=== PATIENT | female | born 1990 | race African-American/Black ===

== ENCOUNTER 2020-02-09 19:32 | Emergency (ER) | payer OTHER, SELFPAY ==
--- NOTE | ~2020-02-09 | XR_ITS ---
EXAMINATION: XR chest 2V DATE: 02/09/2020 20:26 INDICATION: Midsternal chest pain TECHNIQUE: PA and lateral views of the chest are obtained. COMPARISON: None available FINDINGS: There are minimal airspace opacities of the right lung base and left midlung zone. There is no pleural effusion or pneumothorax. The cardiomediastinal silhouette is normal. The visualized bone s and soft tissues are unremarkable. IMPRESSION: 1. Minimal airspace opacities of the right lung base and left midlung zone, consistent with atelectas is versus pneumonia. Reviewed, dictated and finalized at location A. IMPRESSION: 1. Minimal airspace opacities of the right lung base and left midlung zone, con sistent with atelectasis versus pneumonia.
--- NOTE | 2020-02-09 19:34 | ECG_ITS ---
Measurements Intervals [place] Rate: 113 P: 44 TN: 148 QRS: 18 QRSD: 85 T: 20 QT: 322 QTc: 443 Interpretive Statements SINUS TACHYCARDIA VOLTAGE CRITERIA FOR LVH MINIMAL Q WAVES- ANTEROLATERAL LEADS CONSIDER INFERIOR INFARCT, AGE INDETERMINATE ABNORMAL ECG Electronically Signed On 02-09-2020 20:14:34 CDT by Ander Marx D.O.
[2020-02-09 19:42] VITALS: BP 150/102; PULSE 105; RESP 18; TEMP 36.6; O2SAT 99
[2020-02-09 19:57] LABS: Basophils Percent Auto 0.5 % (0.2-1.2); Eosinophils Absolute Auto 0.2 K/mm3 (0-0.3); Eosinophils Percent Auto 2.4 % (0-4.4); Hematocrit 37.3 % (37.0-47.0); Hemoglobin 11.9 g/dL (12.0-15.0); Immature Granulocyte Absolute 0.03 K/mm3 (0.00-0.031); Immature Granulocyte Percent A 0.3 % (0-0.5); Lymphocytes Absolute Auto 2.28 K/mm3 (0.9-3.2); Lymphocytes Percent Auto 26.5 % (18.3-44.2); Mean Corpuscular HGB Conc 31.9 g/dl (32-36); Mean Corpuscular Hemoglobin 26.8 pg (26-34); Mean Platelet Volume 10.8 fl (7.4-10.4); Monocytes Absolute Auto 0.4 K/mm3 (0.1-0.6); Monocytes Percent Auto 4.3 % (2.6-8.5); Neutrophils Absolute Auto 5.7 K/mm3 (1.3-6.7); Platelet Count Result 353 k/mm3 (150-375); Red Blood Count 4.44 M/mm3 (4.2-5.4); White Blood Count 8.6 K/mm3 (4.5-10.0)
[2020-02-09 20:09] LABS: INR 0.9; Prothrombin Time 11.9 Seconds (11.1-14.7)
[2020-02-09 20:11] LABS: Anion Gap 4 mmol/L (8-16); Blood Urea Nitrogen 13 mg/dL (7-17); Calcium 8.9 mg/dL (8.4-10.2); Carbon Dioxide 29 mmol/L (22-30); Chloride 102 mmol/L (98-107); Estimated CRCL calculation 110 ml/min; Estimated Glomerular Filt Rate > 60; Glucose 116 mg/dL (65-105); Potassium 3.9 mmol/L (3.4-5.0); Sodium 135 mmol/L (137-145)
[2020-02-09 20:23] LABS: Troponin I < 0.012 ng/mL (0.000-0.034)
--- NOTE | 2020-02-09 20:33 | ED.CHESTPAIN ---
HPI - Chest Pain General Chief Complaint: Chest Pain Stated Complaint: im having severe chest pain Time Seen by Provider: 02/09/20 20:25 Source: RN notes reviewed History of Present Illness HPI narrative: Patient presents emergency department from home for chest pain. Patient states she is had intermittent chest pain for the past 2 days. Pain is located over the midsternal chest and radiates down to the epigastric region is described as burning. Associated with mild shortness of breath. She denies any fevers or chills vomiting diarrhea or any other symptoms. States she took no medication for the symptoms today Related Data Allergies Allergy/AdvReac Type Severity Reaction Status Date / Time No Known Allergies Allergy Verified 02/09/20 19:33 Review of Systems Review of Systems: Narrative: Gen.: Denies fevers or chills ENT: Denies congestion Respiratory: Reports shortness of breath CV: See HPI GI: Reports epigastric abdominal pain, denies any nausea vomiting or diarrhea denies burning, urgency, frequency or hematuria Musculoskeletal: Denies back pain or muscle pain Neuro: Denies numbness, tingling, weakness or focal weakness Skin: Denies rash Except as documented, all other systems reviewed and negative [facility] Past Medical History Medical History (Updated 02/09/20 @ 22:16 by Otto Dill DO) Patient denies significant medical history Social History Social History (Updated 02/09/20 @ 20:34 by Otto Dill DO) Smoking status: Never smoker Exam Narrative: Exam Narrative: APPEARANCE: No acute distress, nontoxic, resting in bed EYES: EOMI HEENT: Normocephalic, atraumatic, OMM RESPIRATORY: No respiratory distress Clear to auscultation bilaterally with no rhonchi wheezing or rales. CARDIOVASCULAR: Regular rate and rhythm without murmurs rubs or gallops. Chest: Tender palpation over the lower midsternal chest wall ABDOMINAL: Soft, nondistended, tender palpation epigastric region, no tenderness right upper quadrant, left upper quadrant right lower quadrant left lower quadrant, no rebound or guarding MUSCULOSKELETAl: Moves all extremities. No clubbing, cyanosis or edema. NEURO: Awake and alert. Following commands, speech normal, no focal deficits SKIN:: Warm, dry. No rashes lesions or abrasions PSYCHIATRIC: Normal affect/mood, Course Course Emergency Course: Patient states chest pain has resolved following GI cocktail Reviewed chest x-ray patient has no fever or cough suspect atelectasis Discussed with patient results of workup and diagnosis. Discussed need for follow-up with primary care, proper use of medication, and reasons to return to the emergency department. Patient understands and agrees to current treatment plan Vital Signs Vital signs: Vital Signs Temperature 97.9 F 02/09/20 19:42 Pulse Rate 105 H 02/09/20 19:42 Respiratory Rate 18 02/09/20 19:42 Blood Pressure 150/102 H 02/09/20 19:42 Pulse Oximetry 99 02/09/20 19:42 Temperature 97.9 F 02/09/20 19:42 Pulse Rate 88 02/09/20 21:32 Respiratory Rate 16 02/09/20 21:32 Blood Pressure 136/90 02/09/20 21:32 Pulse Oximetry 98 02/09/20 21:32 MDM - Chest Pain MDM Narrative Medical decision making narrative: Patient's EKGs and labs are without significant high risk changes. Cardiac risk factors reviewed. Patient is felt likely low risk for ACS and reasonable for further risk stratification testing as an outpatient. Pain was not sudden or maximal in onset without tearing or ripping quality. No other signs of symptoms suggest aortic dissection. A low-risk Wells criteria is noted, PE is felt to be unlikely. No pneumonia seen on evaluation today. Patient is felt to be a reasonable candidate for continued evaluation as an outpatient Lab Data Result diagrams: 02/09/20 19:51 02/09/20 19:51 Labs: Lab Results 02/09/20 02/09/20 02/09/20 Range/Units 19:50 19:50 19:51 WBC 8.6 (4.5-10.0) K
[2020-02-09 20:41] LABS: Alanine Aminotransferase 13 U/L (4-35); Albumin Level 3.8 g/dL (3.5-5.1); Alkaline Phosphatase 47 U/L (38-126); Aspartate Amino Transferase 17 U/L (14-36); Bilirubin,Total 0.5 mg/dL (0.2-1.3); D Dimer 0.27 ug/mL (<0.48); Lipase 84 U/L (23-300)
[2020-02-09 21:30] VITALS: PULSE 78
[2020-02-09 21:32] VITALS: BP 136/90; PULSE 88; RESP 16; O2SAT 98
[2020-02-09 22:42] VITALS: BP 130/88; PULSE 90; RESP 16; O2SAT 98
== END 2020-02-09 22:50 | disposition home or self-care (01) ==
PROVIDERS: Emergency Provider Emergency Medicine
DX: R07.89 Other chest pain (principal); K21.9 Gastro-esophageal reflux disease without esophagitis; R00.0 Tachycardia, unspecified; R94.31 Abnormal electrocardiogram [ECG] [EKG]; R91.8 Other nonspecific abnormal finding of lung field
CPT/HCPCS: 36415; 71046; 80048; 80076; 83690; 84484; 85025; 85380; 85610; 85730; 93005; 99284; A9270

== ENCOUNTER 2020-03-04 07:23 | Outpatient (CLI) | payer OTHER, SELFPAY ==
--- NOTE | 2020-04-02 23:41 | WPDHOMESLEEP ---
Sleep Study - Home Unattended Date of Study: 03/05/20 Ordering Provider: Maren De La Rosa MD Interpreting Physician: Vika Polanco MD Home Sleep Study Type: Apnea Link Air Height: 1.55 m Weight: 102.058 kg Body Mass Index: 42.5 [place]: 11 Reason for Sleep Study Hypersomnia Sleep History Archie Johnson is a 29 year old female with loud snoring which is constantly loud enough that others complain about it. She frequently awakens at night with heartburn, belching or coughing. She occasionally awakens at night feeling short of breath. She constantly has trouble sleeping with a cold, and frequently gasps for breath at night. She occasionally has breathing problems at night reported to her by others, and occasionally sweats excessively at night. She rarely notices her heart pounding or beating irregularly at night. She never falls asleep in the day, rarely falls asleep involuntarily and rarely falls asleep while driving. She rarely falls asleep during physical effort. She does not have loss of muscle tone with strong emotion. 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 She rarely feels paralyzed on waking or falling asleep. She does not have vivid dreamlike scenes upon awakening or falling asleep. She rarely is afraid to go to sleep. She does not have nightmares and does not remember her dreams. She occasionally has racing thoughts, rarely feels sad or depressed. She frequently feels anxious. She occasionally has muscular tension. She does not notice parts of her body jerking at night. She rarely kicks at night and rarely has crawling or aching feelings in her legs at night. She occasionally has leg pain during the night. She occasionally has morning jaw pain. She does not grind her teeth during sleep and she is not bothered by pain during the day. She occasionally has awakened by pain at night, occasional wakes up feeling stiff in the morning, with sore or achy muscles and pain in the neck and spine. She has fatigue, memory problems, insomnia, takes and acids regularly, has frequent morning headaches. Normal bedtime is 11:00 p.m. taking quite a while to fall asleep, typically waking 3 times at night for 15 minutes. During this time she will get a drink of water and sometimes go to the bathroom. She wakes in the morning at 7:00 a.m.. She estimates 7 hours of sleep at night. We can schedule is the same. She denies taking naps. A short nap is not refreshing. She is drowsy in the morning for 2 hours or longer. Habits: Never smoker. She drinks caffeine. No alcohol or recreational drugs. [facility] Past Medical History Medical History (Updated 04/07/20 @ 09:53 by Vika Polanco MD) Patient denies significant medical history Recurrent streptococcal tonsillitis Family History Family History (Updated 04/07/20 @ 09:53 by Vika Polanco MD) Father Acute myocardial infarction Heart disease Hypercholesterolemia Kidney disease Mother Hypertension Hypercholesterolemia Cerebrovascular accident Osteoporosis Social History Social History (Updated 04/07/20 @ 09:55 by Vika Polanco MD) Smoking status: Never smoker Alcohol intake: never Substance use: never Living arrangements: with family Occupation/Education: occupation 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 This study was scored using CMS guidelines. Sleep Architecture Not applicable for home sleep test. Respiratory Analysis The recording time was 11 hours 17 minutes. The AHi is 5. She had 14 apneas, all obstructive. Oximetry Data The oxygen [facility]
[2020-04-07 10:03] VITALS: BMI 42.5
== END 2020-03-04 07:24 | disposition home or self-care (01) ==
LOC: ANHCSM 07:25
PROVIDERS: Visit Provider Family Medicine
DX: G47.33 Obstructive sleep apnea (adult) (pediatric) (principal)
CPT/HCPCS: 95806

== ENCOUNTER 2020-05-10 07:29 | Emergency (ER) | payer OTHER, SELFPAY ==
--- NOTE | 2020-05-10 07:33 | ED.URI ---
HPI - URI/Sore Throat General Chief Complaint: Unspecified Stated Complaint: sore throat Time Seen by Provider: 05/10/20 07:32 Source: patient Mode of arrival: ambulatory Limitations: no limitations History of Present Illness HPI Narrative: Patient is a 29-year-old female with a history of recurrent pharyngitis, sleep apnea who presents for evaluation of sore throat. Patient has had a sore throat over the past 2 days as well as sinus drainage. Denying fever, chills, cough or shortness of breath. Patient is mildly Dr. Wilson, scheduled for upcoming colonoscopy. She is denying loss of sense of taste or smell. No myalgias. No recent sick contacts. Pt last strep infection ~ 3 months ago per patient. Related Data Allergies Allergy/AdvReac Type Severity Reaction Status Date / Time No Known Allergies Allergy Verified 05/10/20 07:36 Review of Systems Review of Systems: Narrative: CONSTITUTIONAL: Denies fever HEENT: Reports sore throat CARDIOVASCULAR: Denies chest pain RESPIRATORY: Denies cough or dyspnea. 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 EYES: PERRLA and EOMI. ENT: Nares clear, no rhinorrhea or epistaxis. Mucous membranes moist. Uvula is midline. Bilateral tonsillar edema, erythema without petechiae or exudate. No trismus. NECK: Supple. No cervical lymphadenopathy. No edema of the neck. CHEST: No respiratory distress, breathing even and non labored HEART: Regular rate, sinus rhythm ABDOMEN:Non distended, non tender EXTREMITIES: Normal range of motion. No edema. SKIN: Warm, dry, no rash. NEURO:No focal deficits. Alert and oriented x3 Course Vital Signs Vital signs: Vital Signs Temperature 36.3 C L 05/10/20 07:34 Pulse Rate 91 05/10/20 07:34 Respiratory Rate 20 05/10/20 07:34 Blood Pressure 150/100 H 05/10/20 07:34 Pulse Oximetry 100 05/10/20 07:34 Temperature 36.3 C L 05/10/20 07:34 Pulse Rate 91 05/10/20 07:34 Respiratory Rate 20 05/10/20 07:34 Blood Pressure 150/100 H 05/10/20 07:34 Pulse Oximetry 100 05/10/20 07:34 MDM - URI/Sore Throat MDM Narrative Medical decision making narrative: Patient presented for evaluation of sore throat. At the time of assessment, ABCs are intact and vital signs are stable. Patient is afebrile. No Covid type features. Patient does have tonsillar edema, erythema without petechiae or exudate. 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 Airway is patent. Patient was given Decadron, Tylenol, strep swab is positive, she will be prescribed antibiotic treatment for strep pharyngitis. Patient was then discharged home, she is already established with an ENT. Differential Diagnosis Differential diagnosis: Likely upper respiratory infection, otitis media, viral infection and pharyngitis Medical Records Attestation: I reviewed the patient's medical records. Lab Data Labs: Strep Screen Positive Group A Strep *(Reference Range: Negative)* Discharge Plan Discharge Clinical Impression: Strep pharyngitis Patient Disposition: Home, Self-Care Condition: Stable
[2020-05-10 07:34] VITALS: BP 150/100; PULSE 91; RESP 20; TEMP 36.3; O2SAT 100
[2020-05-10] MEDS: ACETAMINOPHEN 500 MG TABLET 1000 MG PO (07:55)
[2020-05-10 07:58] VITALS: BP 148/98; PULSE 80; RESP 20; O2SAT 100
== END 2020-05-10 07:59 | disposition home or self-care (01) ==
PROVIDERS: Emergency Provider Emergency Medicine; PCP Family Medicine
DX: J02.0 Streptococcal pharyngitis (principal)
CPT/HCPCS: 87880; 99283; A9270; J1100

== ENCOUNTER 2020-05-26 03:12 | Outpatient (CLI) | payer OTHER, SELFPAY ==
[2020-05-26 19:22] LABS: SARS-CoV-2 RNA PCR Negative
== END 2020-05-26 03:13 | disposition home or self-care (01) ==
LOC: ANHCOVIDDT 03:12
PROVIDERS: PCP Family Medicine; Visit Provider Otolaryngology
DX: Z01.812 Encounter for preprocedural laboratory examination (principal); Z20.822 Contact with and (suspected) exposure to COVID-19
CPT/HCPCS: C9803; U0003; U0005

== ENCOUNTER 2020-05-29 02:06 | Day surgery (SDC) | payer OTHER, SELFPAY ==
[2020-05-21 15:49] VITALS: BMI 43.5
--- NOTE | 2020-05-27 15:20 | PM.IMHP ---
H&P: HPI History of Present Illness Date/Time: 05/27/20 15:20 Chief Complaint: Adenoid hypertrophy, tonsillar hypertrophy, chronic tonsillitis, inferior turbinate hypertrophy Narrative: Archie Johnson is a 29 year old female Who presents for planned surgical procedure. She reports no new symptoms or changes in her medical history. Review of Systems Constitutional: Constitutional: Denies fatigue, Denies fever(s) and Denies lethargy Eyes: Eyes: Denies blurry vision and Denies change in vision ENT: Reports as per HPI Cardiovascular: Cardiovascular: Denies chest pain Respiratory: Respiratory: Denies cough Endocrine: Endocrine: Denies fatigue Hematologic/Lymphatic: Hematologic/Lymphatic: Denies easy bleeding, Denies easy bruising and Denies lymphadenopathy Allergic/Immunologic: Allergic/Immunologic: Denies seasonal rhinorrhea [facility] Past Medical History Medical History Patient denies significant medical history Recurrent streptococcal tonsillitis Family History Family History Father Acute myocardial infarction Heart disease Hypercholesterolemia Kidney disease Mother Hypertension Hypercholesterolemia Cerebrovascular accident Osteoporosis Social History Social History Smoking status: Never smoker Alcohol intake: current Drinks per week: 1 Substance use: never 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 Spiritual care concerns: No Meds Home Medications and Allergies Home Medications Medication Instructions Recorded Confirmed Type famotidine [Pepcid] 20 mg PO DAILY #14 tablet 02/09/20 05/21/20 Rx fluticasone propionate 50 1 spray INTRANASAL BID #15.8 ml 05/07/20 05/21/20 Rx mcg/actuation nasal spray,suspension Allergies Allergy/AdvReac Type Severity Reaction Status Date / Time No Known Allergies Allergy Verified 05/21/20 15:31 Exam Const: General: cooperative, healthy appearing, comfortable, well developed and alert HENMT: Head: normal to inspection, normocephalic and atraumatic Ears: external ears normal, TM's normal bilaterally and EAC's normal General nose exam: Normal external nose present, Normal nares present and Other nasal findings present ( See clinic note from previous exam) Face and sinus: normal facial exam Mouth: Yes Normal oral and palatal mucosa present, Yes lip normal, Yes tongue normal, Yes oropharynx normal and Yes moist mucous membranes Teeth and gingiva: dentition normal and gingiva normal Throat: posterior oropharynx normal, tonisls abnormal ( see Clinic note previous exam) and uvula midline Eyes: General: appearance normal, both eyes and all related structures Periorbital: periorbital findings normal Eyelids: eyelids normal Conjunctivae: conjunctivae normal Sclera: sclerae normal Neck: Neck: normal visual inspection, full ROM and no lymphadenopathy Thyroid: thyroid normal Lymphatic: no lymphadenopathy noted Resp: Effort & Inspection: normal respiratory effort and able to speak in complete sentences Cardio: Jugular venous distension: no JVD Neuro: Cranial nerves: Yes CN's II-XII intact bilaterally Assessment and Plan Assessment and plan (1) Tonsillar hypertrophy: Code(s): J35.1 - Hypertrophy of tonsils Status: Acute Assessment and Plan: The plan is for the OR for tonsillectomy adenoidectomy, endoscopically assisted if necessary, as well as bilateral inferior turbinate reduction and outfracture. The risks were discussed in great detail including bleeding infection damage to vision turbinate regrowth failure to resolve symptoms need for further procedures nasal regurgitation significant pain change in voice the patient voiced understanding of these risks and agreed. (2) Adenoid hypertrophy: Code(s): J35.2 - Hypertro
[2020-05-29] VITALS (9 sets, daily range): BP systolic 137–156; BP diastolic 87–111; PULSE 86–101; RESP 10–21; TEMP 36.2–36.7; O2SAT 91–100
--- NOTE | 2020-05-29 07:02 | WPDHPUPDATE1 ---
History and Physical Update Update Date/Time: 05/29/20 07:02 History and Physical has been reviewed, including an updated exam of the patient. There are NO changes in the patient's condition. Risks, benefits, and alternatives have been discussed and questions answered. Patient agrees to proceed with procedure.
[2020-05-29] MEDS: ACETAMINOPHEN 500 MG TABLET 1000 MG PO (08:23)
[2020-05-29] MEDS: LACTATED RINGERS 1,000 ML 30 ML IV CONT ×2 (08:40→12:41)
--- NOTE | 2020-05-29 09:31 | WPDANESEPPF ---
Anes - Initial Pre Proc Eval Procedure: Operation Date: 05/29/20 09:45 Proposed Procedures p Tonsillectomy And Adenoidectomy - Wayne Wilson MD s Bilateral Inferior Turbinectomy - Wayne Wilson MD Date/Time: 05/29/20 09:31 Surgeon: Wayne Wilson MD Pre Op Diagnosis: Chronic Tonsilitis, Turbinate Hypertrophy Patient Data Age: 29 Gender: F Height: 5 ft 1 in Weight: 104 kg Last Vital Signs Temp 36.7 C 05/29/20 08:00 Pulse 101 H 05/29/20 08:00 Resp 14 05/29/20 08:00 BP 149/90 H 05/29/20 08:00 Pulse Ox 100 05/29/20 08:00 Allergies Allergy/AdvReac Type Severity Reaction Status Date / Time No Known Allergies Allergy Verified 05/29/20 08:14 Home Medications Medication Instructions Recorded Confirmed Type fluticasone propionate 50 1 spray INTRANASAL BID #15.8 ml 05/07/20 05/29/20 Rx mcg/actuation nasal spray,suspension lisinopril 20 mg PO DAILY 05/29/20 05/29/20 History Patient hx anesthesia problems: none Family hx anesthesia problems: none PMFSH Past Medical History Medical History (Updated 05/29/20 @ 09:35 by Og Burns MD) HTN (hypertension) Morbid obesity Recurrent streptococcal tonsillitis Surgical History Surgical History (Updated 05/29/20 @ 09:35 by Og Burns MD) H/O hernia repair Family History Family History Father Acute myocardial infarction Heart disease Hypercholesterolemia Kidney disease Mother Hypertension Hypercholesterolemia Cerebrovascular accident Osteoporosis Social History Social History Smoking status: Never smoker Alcohol intake: current Drinks per week: 1 Substance use: never Living arrangements: with family 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 Questions were solicited and answers provided to the satisfaction of the patient/family/POA.
[2020-05-29] MEDS: ceFAZolin 2 GM/D5W 50 ML 2 GM/50 ML BAG IVPB (10:50)
[2020-05-29] MEDS: LIDO 1%/EPINEPHRINE 1:100,000 50 ML VIAL 10 ML INFILTRATE (11:06)
[2020-05-29] MEDS: OXYMETAZOLINE HCL 0.05% NAS 15 ML BTL (*BKC) 1 SPRAY NASAL (11:07)
--- NOTE | 2020-05-29 12:28 | SUR.OPER ---
EBL 30
[2020-05-29] MEDS: fentaNYL CITRATE INJ (*CRX) 100 MCG/2 ML VIAL 25 MCG IV PUSH ×6 (12:48→13:17)
--- NOTE | 2020-05-29 12:48 | PM.PROC ---
Procedure Note - Detailed Date of procedure: 05/29/20 Pre-op diagnosis: Chronic Tonsilitis, Turbinate Hypertrophy Adenoid hypertrophy Post-op diagnosis: same Procedure performed: 1. Endoscopic adenoidectomy 2. Tonsillectomy 3. Inferior turbinate reduction without fracture Description of procedure: The patient was correctly identified and consent was verified in the preoperative holding area. The patient was then brought to the operating room and a time-out was performed. General anesthesia was induced and endotracheal tube was secured the patient's airway. The McIvor mouth gag was then introduced demonstrating tonsils which were 3 to 4+ cryptic edematous and erythematous. They are removed by Bovie electrocautery in the extracapsular plane in a setting of 10 and 12. Hemostasis was achieved using intermittent use of suction Bovie electrocautery at a setting of 12 and 15. Hemostasis was noted to be excellent. The adenoids were noted to be too large it 2-3 +2 removed trans orally and the decision was made to remove them endoscopically. The patient was then prepped and draped draped for the next portion of the procedure and the Liborio mouth gag was removed. A 0 degree endoscope utilized to be the nasal passage with a 3 to 4+ adenoids noted and hypertrophied inferior turbinates. The turbinates were injected anteriorly with 0.5 cc of 1% lidocaine with 1 100,000 parts epinephrine. They were then debrided the submucosal plane with the microdebrider with inferior turbinate blade. They were outfractured with a [place] elevator. The microdebrider was then switched to a quad cut and the adenoids were debrided. Hemostasis was achieved using suction Bovie electrocautery at a setting of 15 as well as the packing of the bleeding areas with Afrin-soaked pledgets. Following removal of the pledgets bleeding was noted to be tolerable. This marked the end of the procedure. Care of the patient was turned over to Anesthesiology. I performed all dictated portions blood loss 20 cc no complications. Anesthesia: GLMA Surgeon: Wayne Wilson MD Estimated blood loss (mL): 20 Complications: No immediate complications Condition: stable Disposition: PACU
[2020-05-29] MEDS: oxyCODONE HCL (*CRX) 5 MG TAB IR PO (14:02)
== END 2020-05-29 15:22 | disposition home or self-care (01) ==
PROVIDERS: PCP Family Medicine; Visit Provider Otolaryngology
PROC: (CPT 42821; principal; 2020-05-29 09:45)
PROC: (CPT 42821; 2020-05-29 09:45)
DX: J35.03 Chronic tonsillitis and adenoiditis (principal); J35.1 Hypertrophy of tonsils; J35.2 Hypertrophy of adenoids; G47.33 Obstructive sleep apnea (adult) (pediatric); J34.3 Hypertrophy of nasal turbinates
CPT/HCPCS: 42821; 30140; 88302; 88304; A9270; J0330; J0690; J1100; J2250; J2405; J2704; J3010; J7120

== ENCOUNTER 2020-07-24 23:42 | Emergency (ER) | payer OTHER, SELFPAY ==
[2020-07-24 23:54] VITALS: BP 141/108; PULSE 85; RESP 20; TEMP 36.9; O2SAT 99
--- NOTE | 2020-07-25 00:14 | ED.GENADULT ---
HPI - General Adult General Chief complaint: Unspecified Stated complaint: strep test Source: patient Mode of arrival: ambulatory Limitations: no limitations History of Present Illness HPI narrative: 29-year-old female Complains of being kind of phlegmy and congested Similar to when she is previously had strep throat and especially bothersome when she is getting ready to try to go to sleep at night for last 2 or 3 days She has not had a fever and she did have a tonsillectomy Related Data Home Medications Medication Instructions Recorded Confirmed lisinopril 20 mg PO DAILY 05/29/20 05/29/20 Allergies Allergy/AdvReac Type Severity Reaction Status Date / Time No Known Allergies Allergy Verified 06/04/20 09:22 Review of Systems Constitutional: Constitutional: Denies chills and Denies fever(s) Eyes: Eyes: Reports no additional eye complaints and Denies change in vision ENT: Reports nasal congestion, Reports post nasal drip and Reports sore throat Respiratory: Respiratory: Reports cough Neurologic: Denies headache(s) [facility] Past Medical History Medical History (Updated 07/25/20 @ 00:20 by Ranjeet Phillips MD) HTN (hypertension) Morbid obesity Recurrent streptococcal tonsillitis Surgical History Surgical History (Updated 05/29/20 @ 09:35 by Og Burns MD) H/O hernia repair Family History Family History Father Acute myocardial infarction Heart disease Hypercholesterolemia Kidney disease Mother Hypertension Hypercholesterolemia Cerebrovascular accident Osteoporosis Social History Social History Smoking status: Never smoker Alcohol intake: current Drinks per week: 1 Substance use: never 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 Spiritual care concerns: No Exam Const: General: no acute distress Orientation/consciousness: patient oriented x3 (alert) HENMT: Head: normocephalic and atraumatic Ears: external ears normal General nose exam: No nasal discharge present and no epistaxis Face and sinus: face symmetric Mouth: Yes Normal oral and palatal mucosa present and Yes moist mucous membranes Teeth and gingiva: dentition normal Throat: uvula not displaced and no uvular edema Other: No exudates Eyes: Conjunctivae: conjunctivae normal Sclera: sclerae normal EOM: EOMs intact bilaterally Neck: Neck: normal visual inspection Lymphatic: no lymphadenopathy noted Resp: Effort & Inspection: normal respiratory effort Neuro: General: patient oriented x3 (alert) Cranial nerves: Yes facial symmetry Speech: normal speech Psych: Affect: normal affect Course Course Emergency Course: Discussed with patient that this should be managed with [id number] decongestants and antihistamines Vital Signs Vital signs: Vital Signs Temperature 36.9 C 07/24/20 23:54 Pulse Rate 85 07/24/20 23:54 Respiratory Rate 20 07/24/20 23:54 Blood Pressure 141/108 H 07/24/20 23:54 Pulse Oximetry 99 07/24/20 23:54 Temperature 36.9 C 07/24/20 23:54 Pulse Rate 85 07/24/20 23:54 Respiratory Rate 20 07/24/20 23:54 Blood Pressure 141/108 H 07/24/20 23:54 Pulse Oximetry 99 07/24/20 23:54 Medical Decision Making Vital Signs Vital Signs: Vital Signs Temperature 36.9 C 07/24/20 23:54 Pulse Rate 85 07/24/20 23:54 Respiratory Rate 20 07/24/20 23:54 Blood Pressure 141/108 H 07/24/20 23:54 Pulse Oximetry 99 07/24/20 23:54 Temperature 36.9 C 07/24/20 23:54 Pulse Rate 85 07/24/20 23:54 Respiratory Rate 20 07/24/20 23:54 Blood Pressure 141/108 H 07/24/20 23:54 Pulse Oximetry 99 07/24/20 23:54 Lab Data Labs: Strep Screen Presumptive Negative *(Reference Range: Negative)* Discharge Plan Discharge Clinical Impression: Nasal
[2020-07-25 00:25] VITALS: BP 122/99; PULSE 85; RESP 20; O2SAT 98
== END 2020-07-25 00:25 | disposition home or self-care (01) ==
PROVIDERS: Emergency Provider Emergency Medicine; PCP Family Medicine
DX: R09.81 Nasal congestion (principal); R09.82 Postnasal drip
CPT/HCPCS: 87880; 99283

== ENCOUNTER 2020-12-20 00:48 | Emergency (ER) | payer OTHER, SELFPAY ==
--- NOTE | ~2020-12-20 | XR_ITS ---
EXAMINATION: XR chest 2V 12/20/2020 01:27 INDICATION: Midsternal chest pain PROCEDURE: 2 view chest COMPARISON: 02/09/2020 FINDINGS: The lungs are clear. The cardiomediastinal silhouette is within normal limits. There are no pleural effusions. There is no pneumothorax suspected. IMPRESSION: 1: NO ACUTE CARDIOPULMONARY DISEASE. Reviewed, dictated and finalized at location A.
[2020-12-20 00:49] VITALS: BP 130/78; PULSE 90; RESP 18; TEMP 36.4; O2SAT 100
--- NOTE | 2020-12-20 00:53 | ECG_ITS ---
Measurements Intervals [place] Rate: 93 P: 33 ME: 178 QRS: 12 QRSD: 90 T: 12 QT: 370 QTc: 461 Interpretive Statements SINUS RHYTHM POSSIBLE LEFT VENTRICULAR HYPERTROPHY MINIMAL Q WAVES- ANTEROLATERAL LEADS INFERIOR INFARCT, AGE INDETERMINATE ABNORMAL ECG Electronically Signed On 12-20-2020 7:07:07 CDT by Ander Marx D.O.
[2020-12-20 01:11] LABS: Basophils Percent Auto 0.3 % (0.2-1.2); Eosinophils Absolute Auto 0.2 K/mm3 (0-0.3); Eosinophils Percent Auto 2.2 % (0-4.4); Hematocrit 35.6 % (37.0-47.0); Hemoglobin 11.3 g/dL (12.0-15.0); Immature Granulocyte Absolute 0.03 K/mm3 (0.00-0.031); Immature Granulocyte Percent A 0.3 % (0-0.5); Lymphocytes Absolute Auto 3.71 K/mm3 (0.9-3.2); Lymphocytes Percent Auto 39.4 % (18.3-44.2); Mean Corpuscular HGB Conc 31.7 g/dl (32-36); Mean Corpuscular Hemoglobin 26.3 pg (26-34); Monocytes Absolute Auto 0.6 K/mm3 (0.1-0.6); Monocytes Percent Auto 6.2 % (2.6-8.5); Neutrophils Absolute Auto 4.9 K/mm3 (1.3-6.7); Neutrophils Percent Auto 51.6 % (45.5-73.1); Platelet Count Result 379 k/mm3 (150-375); Red Blood Count 4.29 M/mm3 (4.2-5.4); Red Cell Distribution Width 12.6 % (11.5-14.5); White Blood Count 9.4 K/mm3 (4.5-10.0)
[2020-12-20 01:21] LABS: INR 0.9; Partial Thromboplastin Time 25.6 SECONDS (22.3-36.8); Prothrombin Time 11.8 Seconds (11.1-14.7)
[2020-12-20 01:29] LABS: Anion Gap 10 mmol/L (8-16); Blood Urea Nitrogen 10 mg/dL (7-17); Calcium 8.7 mg/dL (8.4-10.2); Carbon Dioxide 25 mmol/L (22-30); Chloride 100 mmol/L (98-107); Estimated CRCL calculation 108 ml/min; Estimated Glomerular Filt Rate > 60; Glucose 142 mg/dL (65-110); Potassium 3.5 mmol/L (3.4-5.0); Sodium 135 mmol/L (137-145)
[2020-12-20 01:41] LABS: Troponin I < 0.012 ng/mL (0.000-0.034)
[2020-12-20 03:21] VITALS: BP 124/88; PULSE 80; RESP 18; O2SAT 99
--- NOTE | 2020-12-20 03:38 | ED.CHESTPAIN ---
HPI - Chest Pain History of Present Illness HPI narrative: Aching chest pain since this evening. RADIATES TO BILATERAL ARMS AND SHOULDERS. No associated symptoms. She reports exercising more recently. Tried GERD medications without relief. No SOB, diaphoresis, nausea. Related Data Home Medications Medication Instructions Recorded Confirmed lisinopril 20 mg PO DAILY 05/29/20 05/29/20 Allergies Allergy/AdvReac Type Severity Reaction Status Date / Time No Known Allergies Allergy Verified 06/04/20 09:22 Review of Systems Review of Systems: All systems reviewed & are unremarkable except as noted in HPI and below Constitutional: Constitutional: Denies fever(s) ENT: Denies dizziness Respiratory: Respiratory: Denies dyspnea Genitourinary: Genitourinary: Reports no additional female genitourinary complaints Musculoskeletal: Musculoskeletal: Denies back pain Neurologic: Reports dizziness and Denies weakness [facility] Past Medical History Medical History HTN (hypertension) Morbid obesity Recurrent streptococcal tonsillitis Surgical History Surgical History H/O hernia repair Family History Family History Father Acute myocardial infarction Heart disease Hypercholesterolemia Kidney disease Mother Hypertension Hypercholesterolemia Cerebrovascular accident Osteoporosis Social History Social History Smoking status: Never smoker Alcohol intake: current Drinks per week: 1 Substance use: never 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 Spiritual care concerns: No Exam Const: General: healthy appearing, no acute distress and alert Nutritional Appearance: obese Orientation/consciousness: patient oriented x3 HENMT: Head: normal to inspection Neck: Neck: normal visual inspection and no lymphadenopathy Chest: Chest palpation & inspection: no tenderness Resp: Effort & Inspection: normal respiratory effort Auscultation: clear to auscultation bilaterally, no rales, no rhonchi and no wheezes Cardio: Jugular venous distension: no JVD Rate: regular rate Rhythm: regular rhythm Heart sounds: no murmurs GI: Inspection: non-distended GI Palp: Yes Soft to palpation and Yes Tenderness to palpation present (GI) (epigastric) Skin: General skin exam: normal color Neuro: General: patient oriented x3 and moves all extremities Speech: normal speech Extrem: General: no edema Psych: Appearance: well kempt Affect: normal affect Course Vital Signs Vital signs: Vital Signs Temperature 36.4 C 12/20/20 00:49 Pulse Rate 90 12/20/20 00:49 Respiratory Rate 18 12/20/20 00:49 Blood Pressure 130/78 12/20/20 00:49 Pulse Oximetry 100 12/20/20 00:49 Temperature 36.4 C 12/20/20 00:49 Pulse Rate 85 12/20/20 03:49 Respiratory Rate 12 12/20/20 03:49 Blood Pressure 111/77 12/20/20 03:49 Pulse Oximetry 100 12/20/20 03:49 MDM - Chest Pain Lab Data Result diagrams: 12/20/20 01:01 12/20/20 01:02 Labs: Lab Results 12/20/20 12/20/20 12/20/20 Range/Units 01:01 01:02 01:02 WBC 9.4 (4.5-10.0) K/mm3 RBC 4.29 (4.2-5.4) M/mm3 Hgb 11.3 L (12.0-15.0) g/dL Hct 35.6 L (37.0-47.0) % MCV 83.0 (80-100) fl MCH 26.3 (26-34) pg MCHC 31.7 L (32-36) g/dl RDW 12.6 (11.5-14.5) % Plt Count 379 H (150-375) k/mm3 MPV 11.0 H (7.4-10.4) fl Immature Gran % (Auto) 0.3 (0-0.5) % Neut % (Auto) 51.6 (45.5-73.1) % Lymph % (Auto) 39.4 (18.3-44.2) % [place] % (Auto) 6.2 (2.6-8.5) % Eos % (Auto) 2.2 (0-4.4) % Baso % (Auto) 0.3 (0.2-1.2) % Lymph # (Auto) 3.71 H (0.9-3.2) K/mm3 [place] # (Auto) 0.6 (0.1-0.6) K/mm3 Eos # (Auto) 0.2 (0
[2020-12-20 03:49] VITALS: BP 111/77; PULSE 85; RESP 12; O2SAT 100
== END 2020-12-20 03:50 | disposition home or self-care (01) ==
PROVIDERS: Emergency Provider Emergency Medicine; PCP Family Medicine
DX: R07.89 Other chest pain (principal); I10 Essential (primary) hypertension; E66.01 Morbid (severe) obesity due to excess calories; Z68.41 Body mass index [BMI] 40.0-44.9, adult
CPT/HCPCS: 36415; 71046; 80048; 84484; 85025; 85610; 85730; 93005; 99284

== ENCOUNTER 2021-03-11 09:50 | Emergency (ER) | payer OTHER, SELFPAY ==
--- NOTE | ~2021-03-11 | XR_ITS ---
EXAMINATION: XR knee LT min 4V EXAM DATE: 03/11/2021 10:44 INDICATION: Initial encounter following injury, with pain of the left knee. Swelling. TECHNIQUE: Left knee frontal, crosstable lateral, orthogonal oblique projections for interpretation. There is no prior study for comparison. FINDINGS: No evidence osteochondral defect or joint body in the left knee joint. There is moderate -sized joint effusion. No suspicion of lipohemarthrosis. There are no acute fractures identified. No radiopaque foreign bodies identified. IMPRESSION: Moderate-sized left knee joint effusion. Reviewed, dictated and finalized at location B.
[2021-03-11 10:53] VITALS: BP 141/80; PULSE 86; RESP 16; TEMP 36.4; O2SAT 100
--- NOTE | 2021-03-11 11:09 | ED.LOWEXIN ---
HPI - Extremity Injury (Lower) General Chief Complaint: Extremity Injury, Lower Stated Complaint: L KNEE PAIN,SWELLING X1WK Time Seen by Provider: 03/11/21 11:09 Source: patient Mode of arrival: ambulatory Limitations: no limitations History of Present Illness HPI Narrative: Patient is a 30-year-old female presenting for evaluation of left knee pain. Patient states she injured her knee a week ago when she fell after slipping on a wet floor. Patient reports landing onto her left knee with immediate pain at the site. Pain is dull, aching in nature, worse with movement. Patient states she is able to slightly bend and slightly extend her knee but does not have full range of motion due to pain. She denies numbness. She has had swelling without redness or bruising. She has had difficulty putting weight on that leg secondary to pain. She denies improvement with anti-inflammatories. She denies head trauma, loss of consciousness, back pain. No hip pain or ankle pain. Patient states she was seen at [facility] and given an Navneet wrap and discharged home. Patient presents for continued pain. Related Data Home Medications Medication Instructions Recorded Confirmed lisinopril 20 mg PO DAILY 05/29/20 05/29/20 Allergies Allergy/AdvReac Type Severity Reaction Status Date / Time No Known Allergies Allergy Verified 06/04/20 09:22 Review of Systems Review of Systems: CONSTITUTIONAL: Denies fever CARDIOVASCULAR: Denies chest pain RESPIRATORY: Denies cough or dyspnea. GASTROINTESTINAL: Denies abdominal pain SKIN: Denies rash MUSCULOSKELETAL: Denies back pain, reports left knee pain, denies hip pain denies ankle pain NEUROLOGIC: Denies headache PMFSH Past Medical History Medical History (Updated 03/11/21 @ 11:38 by Renetta Grove MD) HTN (hypertension) Morbid obesity Obstructive sleep apnea (~02/2020) Recurrent streptococcal tonsillitis Tonsil pain Surgical History Surgical History (Updated 03/11/21 @ 11:33 by Renetta Grove MD) H/O hernia repair Family History Family History Father Acute myocardial infarction Heart disease Hypercholesterolemia Kidney disease Mother Hypertension Hypercholesterolemia Cerebrovascular accident Osteoporosis Social History Social History Smoking status: Never smoker Alcohol intake: current Drinks per week: 1 Substance use: never 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 EYES: PERRLA and EOMI. ENT: Nares clear, no rhinorrhea or epistaxis. Mucous membranes moist. NECK: Supple. CHEST: No respiratory distress, breathing even and non labored HEART: Regular rate, sinus rhythm ABDOMEN:Obese,non distended EXTREMITIES: Right knee: Normal without crepitus. Full extension and flexion without limitation. Patella is midline. Left knee: Anterior patellar tenderness to palpation. Patella is midline. There is a small knee effusion present. There is no ecchymosis. Patient with flexion to 20 degrees, extension almost full to 180 degrees. No significant crepitus. No significant deformity. Popliteal pulse 2+. Intact distal sensation. Posterior tibialis pulse 2+. SKIN: Warm, dry, no rash. NEURO:No focal deficits. Alert and oriented x3 Course Vital Signs Vital signs: Vital Signs Temperature 36.4 C 03/11/21 10:53 Pulse Rate 86 03/11/21 10:53 Respiratory Rate 16 03/11/21 10:53 Blood Pressure 141/80 H 03/11/21 10:53 Pulse Oximetry 100 03/11/21 10:53 Temperature 36.4 C 03/11/21 10:53 Pulse Rate 86 03/11/21 10:53 Respiratory Rate 16 03/11/21 10:53 Blood Pressure 141/80 H 03/11/21 10:53 Pulse Oximetry 100 03/11/21 10:53 MDM - Extremity Injury (Lower) MDM Narrative Medical dec
[2021-03-11] MEDS: ONDANSETRON HCL ODT 4 MG TABLET PO (11:40)
[2021-03-11] MEDS: oxyCODONE/ACETAMINOPHEN (*CRX) 5-325 MG TABLET 1 TABLET PO (11:40)
[2021-03-11 12:00] VITALS: BP 124/102; PULSE 92; RESP 12; O2SAT 97
== END 2021-03-11 12:01 | disposition home or self-care (01) ==
PROVIDERS: Emergency Provider Emergency Medicine; PCP Family Medicine
DX: S86.912A Strain of unspecified muscle(s) and tendon(s) at lower leg level, left leg, initial encounter (principal); M25.462 Effusion, left knee; I10 Essential (primary) hypertension; G47.33 Obstructive sleep apnea (adult) (pediatric); E66.01 Morbid (severe) obesity due to excess calories; Z68.41 Body mass index [BMI] 40.0-44.9, adult; W01.0XXA Fall on same level from slipping, tripping and stumbling without subsequent striking against object, initial encounter
CPT/HCPCS: 73564; 99283; A9270

== ENCOUNTER 2021-04-11 05:19 | Emergency (ER) | payer OTHER, SELFPAY ==
--- NOTE | ~2021-04-11 | XR_ITS ---
EXAMINATION: XR chest 2V DATE: 04/11/2021 06:07 INDICATION: Chest pain TECHNIQUE: PA and lateral views of the chest are obtained. COMPARISON: 01/09/2021 FINDINGS: The lungs are free of acute opacities. There is no pleural effusion or pneumothorax. The ca rdiomediastinal silhouette is normal. The visualized bones and soft tissues are unremarkable. IMPRESSION: 1. No acute cardiopulmonary abnormality. Reviewed, dictated and finalized at location A. [employer]
[2021-04-11 05:24] VITALS: BP 140/99; PULSE 87; RESP 17; TEMP 36.3; O2SAT 100
--- NOTE | 2021-04-11 05:24 | ECG_ITS ---
Measurements Intervals [place] Rate: 87 P: 34 [place]: 184 QRS: 12 QRSD: 81 T: 10 QT: 375 QTc: 451 Interpretive Statements SINUS RHYTHM VOLTAGE CRITERIA FOR LVH INFERIOR INFARCT, AGE INDETERMINATE BASELINE ARTIFACT- I, II, III, AVR, AVL, AVF ABNORMAL ECG Electronically Signed On 04-11-2021 9:27:34 [employer] by Ander Marx D.O.
[2021-04-11 05:53] LABS: Basophils Percent Auto 0.4 % (0.2-1.2); Eosinophils Absolute Auto 0.1 K/mm3 (0-0.3); Eosinophils Percent Auto 1.4 % (0-4.4); Hematocrit 34.5 % (37.0-47.0); Hemoglobin 11.2 g/dL (12.0-15.0); Immature Granulocyte Absolute 0.02 K/mm3 (0.00-0.031); Immature Granulocyte Percent A 0.3 % (0-0.5); Lymphocytes Absolute Auto 3.05 K/mm3 (0.9-3.2); Lymphocytes Percent Auto 38.3 % (18.3-44.2); Mean Corpuscular HGB Conc 32.5 g/dl (32-36); Mean Corpuscular Hemoglobin 27.1 pg (26-34); Mean Corpuscular Volume 83.5 fl (80-100); Monocytes Absolute Auto 0.5 K/mm3 (0.1-0.6); Monocytes Percent Auto 6.1 % (2.6-8.5); Neutrophils Absolute Auto 4.3 K/mm3 (1.3-6.7); Neutrophils Percent Auto 53.5 % (45.5-73.1); Platelet Count Result 351 k/mm3 (150-375); Red Blood Count 4.13 M/mm3 (4.2-5.4); Red Cell Distribution Width 12.5 % (11.5-14.5)
--- NOTE | 2021-04-11 05:55 | ED.GENADULT ---
HPI - General Adult General Chief complaint: Chest Pain Stated complaint: chest pain, acid reflux? Time Seen by Provider: 04/11/21 05:28 History of Present Illness HPI narrative: Patient a 30-year-old female presents to emergency department with chief complaint of chest discomfort. Patient reports that for the last several days she has had a pressure-like sensation in the middle portion of her chest patient reports not improved by anything and reports its not worsened by anything. The patient denies shortness of breath denies radiation of the arm reports she does have history of reflux reports this feels similar to her reflux. The patient reports she has been compliant with her medications for her GERD. Patient reports she also has history of hypertension. The patient denies prior history of cardiac disease. Related Data Home Medications Medication Instructions Recorded Confirmed lisinopril 20 mg PO DAILY 05/29/20 03/17/21 omeprazole 04/11/21 pantoprazole PO 04/11/21 Allergies Allergy/AdvReac Type Severity Reaction Status Date / Time No Known Allergies Allergy Verified 04/11/21 05:27 Review of Systems Review of Systems: A 10 system review of systems was completed on the patient and is negative except for what is stated in the HPI. Nursing and ancillary documentation was reviewed. 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 HEAD: Normocephalic, atraumatic. EYES: PERRLA and EOMI. ENT: Nares clear, no rhinorrhea or epistaxis. Mucous membranes moist. NECK: Supple. CHEST: Clear to auscultation. No respiratory distress. HEART: Regular rate and rhythm. No murmur heard. Normal peripheral pulses. ABDOMEN: Soft, nontender, nondistended, normal active bowel sounds. EXTREMITIES: Normal range of motion. No edema. SKIN: Warm, dry, no rash. NEURO: No focal deficits. Alert and oriented x3. PSYCH: Normal mood and affect. Course Course Emergency Course: EKG is sinus rhythm rate of [address] elevation or ST depression Vital Signs Vital signs: Vital Signs Temperature 36.3 C L 04/11/21 05:24 Pulse Rate 87 04/11/21 05:24 Respiratory Rate 17 04/11/21 05:24 Blood Pressure 140/99 H 04/11/21 05:24 Pulse Oximetry 100 04/11/21 05:24 Temperature 36.3 C L 04/11/21 05:24 Pulse Rate 87 04/11/21 05:24 Respiratory Rate 17 04/11/21 05:24 Blood Pressure 140/99 H 04/11/21 05:24 Pulse Oximetry 100 04/11/21 05:24 Medical Decision Making Vital Signs Vital Signs: Vital Signs Temperature 36.3 C L 04/11/21 05:24 Pulse Rate 87 04/11/21 05:24 Respiratory Rate 17 04/11/21 05:24 Blood Pressure 140/99 H 04/11/21 05:24 Pulse Oximetry 100 04/11/21 05:24 Temperature 36.3 C L 04/11/21 05:24 Pulse Rate 87 04/11/21 05:24 Respiratory Rate 17 04/11/21 05:24 Blood Pressure 140/99 H 04/11/21 05:24 Pulse Oximetry 100 04/11/21 05:24 Lab Data Result diagrams: 04/11/21 05:44 04/11/21 05:44 Labs: Lab Results
[2021-04-11] MEDS: BELLADONNA ALK/PHENOB ELIX 10 ML, MAG HYDROX/ALUMINUM HYD/SIMETH 30 ML, LIDOCAINE HCL 2... PO (05:56)
--- NOTE | 2021-04-11 06:04 | PC.NURSE ---
Patient taken to xray via w/c.
[2021-04-11 06:06] LABS: Alanine Aminotransferase 14 U/L (4-35); Albumin Level 4.2 g/dL (3.5-5.1); Alkaline Phosphatase 57 U/L (38-126); Anion Gap 5 mmol/L (8-16); Aspartate Amino Transferase 18 U/L (14-36); Bilirubin,Total 0.4 mg/dL (0.2-1.3); Blood Urea Nitrogen 7 mg/dL (7-17); Carbon Dioxide 29 mmol/L (22-30); Chloride 100 mmol/L (98-107); Estimated CRCL calculation 128 ml/min; Estimated Glomerular Filt Rate > 60; Glucose 110 mg/dL (65-110); Lipase 58 U/L (23-300); Potassium 3.7 mmol/L (3.4-5.0); Sodium 134 mmol/L (137-145)
[2021-04-11 06:11] LABS: Prothrombin Time 12.6 Seconds (11.1-14.7)
[2021-04-11 06:12] LABS: Partial Thromboplastin Time 25.4 SECONDS (22.3-36.8)
[2021-04-11 06:18] LABS: Troponin I < 0.012 ng/mL (0.000-0.034)
[2021-04-11 06:38] VITALS: BP 130/87; PULSE 77; RESP 14; O2SAT 99
== END 2021-04-11 06:39 | disposition home or self-care (01) ==
PROVIDERS: Emergency Provider Emergency Medicine; PCP Family Medicine
DX: R07.89 Other chest pain (principal); I10 Essential (primary) hypertension; G47.33 Obstructive sleep apnea (adult) (pediatric); E66.01 Morbid (severe) obesity due to excess calories; Z68.41 Body mass index [BMI] 40.0-44.9, adult; R94.31 Abnormal electrocardiogram [ECG] [EKG]
CPT/HCPCS: 36415; 71046; 80053; 83690; 84484; 85025; 85610; 85730; 93005; 99284; A9270

== ENCOUNTER 2021-06-13 17:46 | Emergency (ER) | payer OTHER, SELFPAY ==
--- NOTE | ~2021-06-13 | XR_ITS ---
XR chest 1V portable DATE: 06/13/2021 19:39 INDICATION: Cough TECHNIQUE: Portable AP chest on 06/13/2021 at 1937 hours COMPARISON: 04/11/2021 PA and lateral chest FINDINGS: There is pulmonary vascular redistribution which suggests pulmonary venous hypertension. Heart size is normal. No pulmonary infiltrate or consolidation, pleural effusion or pulmonary vascula r congestion or pneumothorax is detected. IMPRESSION: Pulmonary vascular redistribution suggests mild pulmonary venous hypertension No active pulmonary disease Reviewed, dictated and finalized at location A. [employer] CH[employer] IMPRESSION: Pulmonary vascular redistribution suggests mild pulmonary venous hy pertension No active pulmonary disease
[2021-06-13 18:01] VITALS: BP 146/86; PULSE 89; RESP 20; TEMP 37.1; O2SAT 100
[2021-06-13 20:31] LABS: SARS-CoV-2 RNA PCR Negative
[2021-06-13 20:35] VITALS: BP 135/94; PULSE 81; RESP 16; O2SAT 100
--- NOTE | 2021-06-13 21:18 | ED.GENADULT ---
HPI - General Adult General Chief complaint: Upper Respiratory Infection Stated complaint: wants chest xray, congested Time Seen by Provider: 06/13/21 19:31 Source: patient Mode of arrival: ambulatory Limitations: no limitations History of Present Illness HPI narrative: Patient is a 30-year-old female with chief complaint of sore throat and productive cough over the past 3 days. Patient states she also has gastritis which is managed by her GI specialist. She reports she has been keeping close contact with the GI specialist as she has had to have some medication adjustments recently. Patient denies shortness of breath. She denies fever or chills. She denies having asthma or COPD. Related Data Home Medications Medication Instructions Recorded Confirmed lisinopril 20 mg PO DAILY 05/29/20 03/17/21 omeprazole 04/11/21 pantoprazole PO 04/11/21 Allergies Allergy/AdvReac Type Severity Reaction Status Date / Time No Known Allergies Allergy Verified 06/13/21 20:36 Review of Systems Review of Systems: CONSTITUTIONAL: Denies fever, chills, or sweats. EYES: Denies visual changes, redness, or discharge. ENT: Reports congestion and sore throat denies rhinorrhea or otalgia. CARDIOVASCULAR: Denies chest pain, palpitations, or edema. RESPIRATORY: Reports cough denies dyspnea. GASTROINTESTINAL: Denies abdominal pain, nausea, vomiting, or diarrhea. GENITOURINARY: Denies dysuria or hematuria. SKIN: Denies rash or itching. MUSCULOSKELETAL: Denies back pain, joint pain, or myalgia. NEUROLOGIC: Denies headache, numbness, dizziness, or weakness. PSYCHIATRIC: Denies anxiety or depression. 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 Nontoxic in appearance. Not diaphoretic. HEAD: Normocephalic, atraumatic. EYES: PERRLA and EOMI. CHEST: Clear to auscultation. No respiratory distress. No wheezes rales or rhonchi. No tachypnea. Patient satting 99% on RA. HEART: Regular rate and rhythm. EXTREMITIES: Normal range of motion. No edema. SKIN: Warm, dry, no rash. NEURO: No focal deficits. Alert and oriented x3. PSYCH: Normal mood and affect. Course Vital Signs Vital signs: Vital Signs Temperature 98.8 F 06/13/21 18:01 Pulse Rate 89 06/13/21 18:01 Respiratory Rate 20 06/13/21 18:01 Blood Pressure 146/86 H 06/13/21 18:01 Pulse Oximetry 100 06/13/21 18:01 Temperature 98.8 F 06/13/21 18:01 Pulse Rate 81 06/13/21 20:35 Respiratory Rate 16 06/13/21 20:35 Blood Pressure 135/94 H 06/13/21 20:35 Pulse Oximetry 100 06/13/21 20:35 Medical Decision Making MDM Narrative Medical decision making narrative: Patient influenza, strep and Covid test are negative. Patient instructed to follow-up primary care for reevaluation of symptom persist. Discussed the patient no sign of pneumonia seen on her chest x-ray however there are findings of pulmonary hypertension for which she is to follow-up with her primary care for further investigation and management. Patient has been instructed to c
== END 2021-06-13 21:07 | disposition home or self-care (01) ==
PROVIDERS: Physician Assistant; Emergency Provider Emergency Medicine; PCP Family Medicine
DX: B34.9 Viral infection, unspecified (principal); Z20.822 Contact with and (suspected) exposure to COVID-19; I10 Essential (primary) hypertension; E66.01 Morbid (severe) obesity due to excess calories; Z68.41 Body mass index [BMI] 40.0-44.9, adult; G47.33 Obstructive sleep apnea (adult) (pediatric)
CPT/HCPCS: 71045; 87081; 87804; 87880; 99283; C9803; U0003; U0005

== ENCOUNTER 2023-02-20 02:27 | Emergency (ER) | payer OTHER, SELFPAY ==
[2023-02-20 02:31] VITALS: BP 146/80; PULSE 82; RESP 16; TEMP 36.2; O2SAT 100
--- NOTE | 2023-02-20 04:00 | ED.DENTAL ---
HPI - Dental/Oral General Chief complaint: Dental/Oral Stated complaint: dental pain Time Seen by Provider: 02/20/23 03:31 History of Present Illness HPI Narrative: 32-year-old female presented the emergency department for evaluation of right lower dental pain. Patient reports pain is been bothering her for the last few days. Patient denies any difficulty breathing swallowing. Related Data Home Medications Medication Instructions Recorded Confirmed amoxicillin 875 mg-potassium tablet 02/20/23 clavulanate 125 mg tablet ibuprofen 600 mg tablet mg 02/20/23 Allergies Allergy/AdvReac Type Severity Reaction Status Date / Time No Known Allergies Allergy Verified 02/20/23 03:27 Review of Systems Review of Systems: All systems reviewed & are unremarkable except as noted in HPI and below PMFSH Past Medical History Medical History HTN (hypertension) Morbid obesity Obstructive sleep apnea (~02/2020) Recurrent streptococcal tonsillitis Tonsil pain Surgical History Surgical History H/O hernia repair Family History Family History Father Acute myocardial infarction Heart disease Hypercholesterolemia Kidney disease Mother Hypertension Hypercholesterolemia Cerebrovascular accident Osteoporosis Social History Social History Smoking status: Never smoker Alcohol intake: current Drinks per week: 1 Substance use: never Living arrangements: with family Occupation/Education: occupation 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 HEAD: normocephalic, atraumatic. EYES: PERRLA/EOMI, conjunctivae clear. NOSE: Normal no drainage THROAT: Pharynx clear, no exudate. NECK: Supple. No adenopathy, no masses. RESPIRATORY: Airway patent, respirations nonlabored. Clear to auscultation bilaterally, no rales, rhonchi, wheezing. CARDIOVASCULAR: Regular rate and rhythm without murmurs rubs or gallops. ABDOMINAL: Soft, nontender, nondistended, normal bowel sounds MUSCULOSKELETAL: Moves all extremities. Strength/ROM intact, No edema, No calf tenderness. NEURO: Alert. Cranial nerves II through XII intact. SKIN: Warm, dry. Normal Color Course Course Emergency Course: 32-year-old female present emergency department for evaluation of persistent dental pain. Patient was started on antibiotics and provided medications for pain control. Patient was encouraged of close follow-up with a dentist. All question concerns were addressed Vital Signs Vital signs: Vital Signs Temperature 97.2 F L 02/20/23 02:31 Pulse Rate 82 02/20/23 02:31 Respiratory Rate 16 02/20/23 02:31 Blood Pressure 146/80 H 02/20/23 02:31 Pulse Oximetry 100 02/20/23 02:31 Oxygen Delivery Room Air 02/20/23 02:31 Temperature 97.2 F L 02/20/23 02:31 Pulse Rate 82 02/20/23 02:31 Respiratory Rate 16 02/20/23 02:31 Blood Pressure 146/80 H 02/20/23 02:31 Pulse Oximetry 100 02/20/23 02:31 Oxygen Delivery Room Air 02/20/23 02:31 Discharge Plan Discharge Clinical Impression: Pain, dental Patient Disposition: Home, Self-Care Condition: Stable Instructions: Antibiotic Form, Toothache (ED) Additional Instructions: Continue taking your antibiotic as scheduled. Continue taking the ibuprofen scheduled for pain control. Tylenol for pain control as needed. If you need additional pain control replace the Tylenol with [place]. Do not take [place] while you are taking Tylenol in order to to avoid a acetaminophen overdose. Have close follow-up with a dentist. Prescriptions: New hydrocodone-acetaminophen 5-325 mg tablet
[2023-02-20] MEDS: HYDROcodone/acetaminophen (*CRX) 10-325 MG TABLET 1 TAB PO (04:05)
== END 2023-02-20 04:13 | disposition home or self-care (01) ==
PROVIDERS: Emergency Provider Emergency Medicine
DX: K08.89 Other specified disorders of teeth and supporting structures (principal); I10 Essential (primary) hypertension; G47.30 Sleep apnea, unspecified
CPT/HCPCS: 99283; A9270